=== PATIENT | male | born 1950 | race Caucasian/White ===

== ENCOUNTER 2017-11-13 08:22 | Day surgery (SDC) | payer OTHER ==
[~2017-11-13] VITALS: Ht 180.3 cm; Wt 83.9 kg
[2017-11-13] MEDS ORDERED: NS 1000 ML BAG IV ONE (10:16)
[2017-11-13] MEDS ORDERED: WATER FOR IRRIGATION,STERILE 1,000 ML IRRIG.SOLN IR ONE (10:16)
[2017-11-13] MEDS ORDERED: OXYMETAZOLINE HCL 0.05% NASAL SPRAY NS ONE (10:16)
[2017-11-13] MEDS ORDERED: SUCCINYLCHOLINE CHLORIDE 20 MG/ML(QUELICIN) IVP ONE (10:16)
[2017-11-13] MEDS ORDERED: SEVOFLURANE 15 MIN GAS INH ONE (10:16)
[2017-11-13] MEDS ORDERED: MIDAZOLAM HCL 5 MG/5 ML VIAL IVP ONE (10:16)
[2017-11-13] MEDS ORDERED: LIGHT MINERAL OIL 10 ML VIAL MC ONE (10:16)
[2017-11-13] MEDS ORDERED: ONDANSETRON HCL 4 MG/2 ML VIAL IVP ONE ×2 (10:16→12:00)
[2017-11-13] MEDS ORDERED: LIDOCAINE/EPI 1% 1:100000 20 ML VIAL INJ ONE (10:16)
[2017-11-13] MEDS ORDERED: LR 1,000 ML IV.SOLN IV ONE (10:16)
[2017-11-13] MEDS ORDERED: GLYCOPYRROLATE 0.2 MG/ML VIAL IJ ONE (10:16)
[2017-11-13] MEDS ORDERED: PROPOFOL 200MG/ 20ML VIAL (DIPRIVAN) IV ONE (10:16)
[2017-11-13] MEDS ORDERED: LIDOCAINE JECT 2% PF 100 MG/5ML SYRINGE IVP ONE (10:16)
[2017-11-13] MEDS ORDERED: NS IRRIG SOLN 1000 ML IR ONE (10:16)
[2017-11-13] MEDS ORDERED: HYDROCORTISONE SOD SUCC 100 MG/2 ML VIAL IVP ONE (10:16)
[2017-11-13] MEDS ORDERED: fentaNYL CITRATE 250 MCG/5 ML AMP IV ONE (10:16)
[2017-11-13] MEDS ORDERED: MUPIROCIN 2% TOPICAL OINTMENT 22 GM TP ONE (10:16)
[2017-11-13] MEDS ORDERED: NEOSTIGMINE METHYLSULFATE 1 MG/ML, 10 ML VIAL IVP ONE (10:16)
[2017-11-13] MEDS ORDERED: ROCURONIUM BROMIDE 10 MG/ML (ZEMURON) IV ONE (10:16)
[2017-11-13] MEDS ORDERED: MIDAZOLAM HCL 5 MG/5 ML VIAL IVP PRN (12:00)
[2017-11-13] MEDS ORDERED: MEPERIDINE HCL/PF 25 MG/ML DISP.SYRIN IVP PRN (12:00)
[2017-11-13] MEDS ORDERED: HYDROmorphone 1 MG INJ. 1 MG/ML AMPUL IVP PRN (12:00)
[2017-11-13] MEDS ORDERED: NALOXONE HCL 0.4 MG/ML AMP (NARCAN) IVP ONE (12:00)
[2017-11-13] MEDS ORDERED: fentaNYL CITRATE/PF 100 MCG/2 ML AMP IVP PRN (12:00)
[2017-11-13] MEDS ORDERED: ALBUTEROL SULFATE 0.083% 2.5 MG/3 ML VIAL.NEB INH PRN (12:15)
[2017-11-13 12:45] VITALS: BP_SYST 126
[2017-11-13] MEDS ORDERED: OXYCODONE/ACETAMINOPHEN 5-325 TABLET ONE (14:08)
== END 2017-11-13 16:05 | disposition home or self-care (01) ==
LOC: SDS 08:22 → SMU 08:22 → SDS 16:05
PROVIDERS: ATTEND Otolaryngology
DX: J34.2 Deviated nasal septum (principal); J32.9 Chronic sinusitis, unspecified; J34.89 Other specified disorders of nose and nasal sinuses; J32.4 Chronic pansinusitis; J34.3 Hypertrophy of nasal turbinates; J30.1 Allergic rhinitis due to pollen; K21.9 Gastro-esophageal reflux disease without esophagitis; J45.20 Mild intermittent asthma, uncomplicated
CPT/HCPCS: 30140; 30520; 31255; 31267; 31297; 88305; 88311; C1726; J0330; J1720; J2250; J2405; J2704; J2710; J3010; J3490; J7030; J7120

== ENCOUNTER 2017-12-22 07:23 | Inpatient (IN) | payer OTHER ==
[~2017-12-22] VITALS: Ht 180.3 cm; Wt 83.5 kg
[2017-12-22 07:25] VITALS: BP_SYST 119
[2017-12-22] MEDS ORDERED: IPRATROPIUM BROM 0.5 MG/2.5 ML VIAL.NEB (ATROVENT) IH ONE (07:30)
[2017-12-22] MEDS ORDERED: LevALBUTEROL HCL 1.25 MG/0.5 ML *CONC.* VIAL.NEB (XOPENEX CONC.) INH ONE ×2 (07:30→13:18)
[2017-12-22] MEDS ORDERED: methylPREDNISolone SOD SUCC/PF 62.5 MG/ML VIAL IVP ONE (07:30)
--- NOTE | 2017-12-22 07:45 | NUR ---
PATIENT PLACED IN BED 3, PATIENT HAVING SHORTNESS OF BREATH, TACHYPNEA. PATIENT STATES THAT HE HAS HAD DOUBLE PNEUMONIA IN THE PAST 3 WEEKS, PATIENT STATES HE HAS FINISHED HIS STEROIDS THIS PAST WEEKEND AND HE FEELS LIKE THE DISTRESS HAS INCREASED. PRIOR TO COMING IN HE TOOK THE NEBULIZER AND INHALERS WITHOUT RELIEF. PATIENT HAS BEEN FOLLOWING UP WITH PULMONARY AND WITH CARDIOLOGY. DESIGNER IS DR. CRAWFORD.
[2017-12-22 07:48] LABS: BASOPHILS # (AUTO) 0.1 K/uL (0.0-0.2)
[2017-12-22 07:54] LABS: BASOPHILS % (AUTO) 0.7 % (0.0-2.0); EOSINOPHILS # (AUTO) 2.3 K/uL (0.0-0.4); EOSINOPHILS % (AUTO) 22.4 % (0.0-4.0); HEMATOCRIT 42.6 % (36-54); HEMOGLOBIN 15.1 g/dL (14.0-18.0); LYMPHOCYTES # (AUTO) 0.6 K/uL (1.0-5.5); LYMPHOCYTES % (AUTO) 6.4 % (20.5-51.5); MEAN CORPUSCULAR HEMOGLOBIN 33 pg (27-31); MEAN CORPUSCULAR HGB CONC 36 % (32-36); MEAN CORPUSCULAR VOLUME 93 fL (79.0-98.0); MONOCYTES # (AUTO) 0.8 K/uL (0.0-1.0); MONOCYTES % (AUTO) 8.1 % (1.7-9.3); NEUTROPHILS # (AUTO) 6.3 K/uL (1.8-7.7); NEUTROPHILS % (AUTO) 62.4 % (40.0-70.0); PLATELET COUNT (AUTO) 272 K/uL (130-430); RED BLOOD CELL COUNT(AUTO) 4.59 MIL/uL (4.2-6.2); WHITE BLOOD COUNT (AUTO) 10.1 K/uL (4.8-10.8)
--- NOTE | 2017-12-22 07:58 | NUR ---
MD AT BEDSIDE FOR EVALUATION
[2017-12-22 08:08] LABS: CALCIUM 9.3 mg/dL (8.4-11.0); CREATININE 1.28 mg/dL (0.55-1.30)
[2017-12-22 08:16] LABS: INR 1.1 (0.80-1.20); PROTHROMBIN TIME 10.7 SECS (9.5-12.5)
[2017-12-22 08:19] LABS: ALBUMIN 2.9 g/dL (3.4-4.8); TOTAL BILIRUBIN 1.6 mg/dL (0.0-1.0)
[2017-12-22] MEDS ORDERED: LEVOFLOXACIN 500 MG/D5W 100 ML IV ONE (08:45)
[2017-12-22] MEDS ORDERED: ALBMDI INH (09:24)
[2017-12-22] MEDS ORDERED: BUDE6HFA INH (09:24)
[2017-12-22] MEDS ORDERED: TAMS-11 PO (09:25)
--- NOTE | 2017-12-22 09:25 | NUR ---
PATIENT TO BE ADMITTED UNDER THE SERVICE OF DR. SPENCER.
--- NOTE | 2017-12-22 09:25 | NUR ---
Medication reconciliation completed with information provided by pt. Any prior medication reconciliation on file was reviewed and corrected.
--- NOTE | 2017-12-22 09:28 | NUR ---
ORDERS RECEIVED FROM DR. SPENCER REGARDING ADMISSION TO TELEMETRY. ADMISSION DX: EXACERBATED ASTHMA, COMPLICATED PNEUMONIA, HYPOXIA. ORDERS RECEIVED FOR REGULAR DIET, PULMONARY CONSULT FOR DR. FAULKNER, SPUTUM GRAM STAIN AND CULTURE, AND URINALYSIS. ORDERS ENTERED BY NURSE. CALLED FOR BED ASSIGNMENT. ROOM 111B.
[2017-12-22] MEDS ORDERED: ALBUTEROL SULFATE 0.083% 2.5 MG/3 ML VIAL.NEB INH ONE (09:30)
--- NOTE | 2017-12-22 10:08 | NUR ---
ADMISSION NOTE Received patient from ER via gurney. Patient admitted with diagnosis of asthama exacerbation and complicated PNA. Patient is awake, alert, oriented X . Patient oriented to hospital room, call light, toileting, pain management and safety-teach back done. Patient informed that Mary will be his nurse and that their room number is 112-B. Personal belongings checked and Belongings List documented. Call light within reach.
--- NOTE | 2017-12-22 10:17 | NUR ---
CONSULT PULMONOLOGY EXACERBATED ASTHMA, COMPLICATED PNA, HYPOXIA DR FAULKNER [phone] DR STONE NEWSPAPER PHOTOGRAPHER S/W KRYSTIAN IN OFFICE / DR STONE IS ROUNDING AND IS AWARE OF CONSULT
[2017-12-22 10:20] VITALS: BP_SYST 125
--- NOTE | 2017-12-22 10:45 | NUR ---
NOTE: GOT REPORT FROM AN CHACORTA. PATIENT ALERT AND ORIENTED. PATIENT NOT COMPLAINING OF PAIN AT MOMENT. PATIENT ON 2L NC NOT COMPLAINING OF SHORTNESS OF BREATH. PATIENT NOT COMPLAINING OF NAUSEA OR VOMITING OR CONSTIPATION. EDUCATED PATIENT ON IMPORTANCE OF BED ALARM BUT REFUSED TO HAVE IT ON. ASSESSMENT WAS DONE. BED IN LOWEST POSITION WITH CALL LIGHT IN REACH. WILL CONTINUE TO MONITOR.
[2017-12-22] MEDS ORDERED: LevALBUTEROL HCL 1.25 MG/0.5 ML *CONC.* VIAL.NEB (XOPENEX CONC.) INH PRN (11:00)
[2017-12-22] MEDS: LEVOFLOXACIN 500 MG/D5W 100 ML IV SCH (12:17)
--- NOTE | 2017-12-22 12:20 | NUR ---
NOTE: PATIENT IN BED WITH AT BEDSIDE. PATIENT EATING LUNCH. GAVE PATIENT ANTIBIOTICS. PATIENT HAS NO DISTRESS AT MOMENT. WILL CONTINUE TO MONITOR.
[2017-12-22 12:45] VITALS: BP_SYST 125
[2017-12-22] MEDS: LevALBUTEROL HCL 1.25 MG/0.5 ML *CONC.* VIAL.NEB (XOPENEX CONC.) INH SCH ×2 (13:18→19:58)
[2017-12-22 13:20] VITALS: BP_SYST 125
[2017-12-22] MEDS ORDERED: IOHEXOL 350 mgI/mL, 150 ML INFUS..BTL IV ONE (13:33)
--- NOTE | 2017-12-22 13:45 | NUR ---
NOTE: PATIENT LEFT TO CT.
--- NOTE | 2017-12-22 14:15 | NUR ---
NOTE: PATIENT BACK FROM CT. IN RESTROOM NOW. WILL CONTINUE TO MONITOR.
--- NOTE | 2017-12-22 14:45 | NUR ---
NOTE: PATIENT WAS HOOKED UP TO LAST OF ANTIBIOTICS BY NURSE PRESTON. IV GOT INFILTRATED. STOPPED FLUIDS. GAVE PATIENT MEDICATION IN OTHER IV. WILL CONTINUE TO MONITOR PATIENT.
[2017-12-22] MEDS: methylPREDNISolone SOD SUCC/PF 62.5 MG/ML VIAL IVP SCH ×2 (14:56→21:06)
[2017-12-22] MEDS ORDERED: ZOLPIDEM TARTRATE 5 MG TABLET PO PRN (15:15)
[2017-12-22] MEDS ORDERED: CYCL-10 PO (15:15)
[2017-12-22] MEDS ORDERED: ACETAMINOPHEN 325 MG TABLET PO PRN (15:15)
[2017-12-22] MEDS ORDERED: FAMOTIDINE 20 MG TABLET PO ONE (15:15)
[2017-12-22 16:50] VITALS: BP_SYST 107
--- NOTE | 2017-12-22 16:52 | NUR ---
NOTE: PATIENT WAS COMPLAINING OF SHORTNESS OF BREATH AND THAT HE COULDN'T TAKE A DEEP BREATH. CALLED RT TO GIVE HIM BREATHING TREATMENT. IV WAS TAKEN OUT OF INFILTRATED SITE. SWELLING WENT DOWN. WILL CONTINUE TO MONITOR.
[2017-12-22] MEDS: MONTELUKAST 10 MG TABLET PO SCH (17:46)
--- NOTE | 2017-12-22 18:21 | NUR ---
CLOSING NOTE: PATIENT SITTING IN BED WATCHING TV WITH FAMILY AT BEDSIDE. PATIENT SAID HE STILL FEELS A LITTLE SHORT OF BREATH. PATIENT GOT A BREATHING TREATMENT ABOUT AN HOUR AGO. PATIENT ON 2L NC. PATIENT WAS GIVEN SCHEDULED MEDICATIONS. PATIENT NOT COMPLAINING OF PAIN OR NAUSEA/VOMITING. EDUCATED PATIENT ON IMPORTANCE OF BED ALARM BUT REFUSED TO HAVE IT ON THROUGH SHIFT. PATIENT SALINE LOCKED. BED IN LOWEST POSITION WITH CALL LIGHT IN REACH. WILL CONTINUE TO MONITOR AND GIVE REPORT TO CONTINUOUS LINTER DRIER OPERATOR NURSE.
--- NOTE | 2017-12-22 19:10 | NUR ---
OPENING NOTE Rec'd report from LULI Hernandez. Pt resting in bed awake, alert, oriented x4. Family at the bedside. Breathing unlabored and even, on 2L oxygen via NC. No signs of distress, no needs at this time. Fall and safety precautions in place. Bed in lowest position, brake on, call light within reach. Bed alarm refused. IV site saline locked. Will continue to monitor.
[2017-12-22 20:41] VITALS: BP_SYST 121
[2017-12-22] MEDS: CYCLOBENZAPRINE HCL 10 MG TABLET (FLEXERIL) PO SCH (21:06)
--- NOTE | 2017-12-22 23:32 | NUR ---
Pt resting in bed awake, alert, oriented x4. Breathing unlabored and even on 2L oxygen via NC. No signs of distress, no needs at this time. Fall and safety precautions in place. Bed in lowest position, brake on, call light within reach. Will continue to monitor.
--- NOTE | 2017-12-23 00:08 | NUR ---
Pt's daughter called for an update. Also transferred her to pt's room to talk to pt
[2017-12-23 00:25] VITALS: BP_SYST 129
[2017-12-23] MEDS: LevALBUTEROL HCL 1.25 MG/0.5 ML *CONC.* VIAL.NEB (XOPENEX CONC.) INH SCH ×4 (01:30→19:17)
--- NOTE | 2017-12-23 02:51 | NUR ---
Pt resting in bed with eyes closed. Breathing unlabored and even on 2L oxygen via NC. No signs of distress, no needs at this time. Fall and safety precautions in place. Bed in lowest position, brake on, call light within reach. Will continue to monitor.
[2017-12-23] MEDS: methylPREDNISolone SOD SUCC/PF 62.5 MG/ML VIAL IVP SCH ×3 (06:02→21:18)
[2017-12-23 07:30] LABS: BASOPHILS % (AUTO) 0.2 % (0.0-2.0); HEMATOCRIT 41.2 % (36-54); HEMOGLOBIN 14.2 g/dL (14.0-18.0); LYMPHOCYTES # (AUTO) 0.8 K/uL (1.0-5.5); MEAN CORPUSCULAR HEMOGLOBIN 33 pg (27-31); MEAN CORPUSCULAR HGB CONC 35 % (32-36); MEAN CORPUSCULAR VOLUME 95 fL (79.0-98.0); MONOCYTES # (AUTO) 0.5 K/uL (0.0-1.0); MONOCYTES % (AUTO) 3.9 % (1.7-9.3); NEUTROPHILS # (AUTO) 10.6 K/uL (1.8-7.7); NEUTROPHILS % (AUTO) 88.9 % (40.0-70.0); PLATELET COUNT (AUTO) 282 K/uL (130-430); RED BLOOD CELL COUNT(AUTO) 4.33 MIL/uL (4.2-6.2); RED CELL DISTRIBUTION WIDTH 13.1 % (9.0-15.0); WHITE BLOOD COUNT (AUTO) 11.9 K/uL (4.8-10.8)
[2017-12-23 07:31] LABS: CREATININE 1.21 mg/dL (0.55-1.30)
--- NOTE | 2017-12-23 07:40 | NUR ---
CLOSING NOTE Gave report to LULI Harris. Pt resting in bed awake, alert, oriented x4, receiving a breathing treatment. Breathing unlabored and even on 2L oxygen via NC. No signs of distress, no needs at this time. All needs met throughout shift. Fall and safety precautions in place throughout shift. Bed in lowest position, brake on, call light within reach. IV site saline locked. No signs of infiltration. Endorsed care to day shift nurse.
[2017-12-23 08:01] VITALS: BP_SYST 120
--- NOTE | 2017-12-23 08:02 | NUR ---
Opening Note received report from production shift supervisor RN, pt resting in bed, A&Ox4, respirations even and unlabored, tolerating O2 therapy well on 2L nasal canula, pt denies any chest pain or shortness of breath, pt denies any pain, IV site clean, dry, and intact, tele monitor in place, pt educated on use of call light and asked to call for assistance, pt verbalized understanding, call light in reach, bed in low position, bed alarm on, room close to nurses station, fall and aspiration precautions in place.
[2017-12-23] MEDS: FAMOTIDINE 20 MG TABLET PO SCH (08:40)
--- NOTE | 2017-12-23 08:42 | NUR ---
Medication/Notes pt educated on medication use and side effects, pt verbalized understanding, tolerated medication administration well, pt ambulated to bathroom, steady gait noted, pt refusing bed alarm at this time, bed in low position, rooom close to nurses station, fall and aspiration precautions in place.
[2017-12-23] MEDS: LEVOFLOXACIN 500 MG/D5W 100 ML IV SCH (10:20)
--- NOTE | 2017-12-23 10:34 | NUR ---
Medication pt and spouse educated on medication use and side effects, pt and spouse verbalized understanding, pt tolerating medication administration well, no redness or swelling at IV site, spouse at bedside, fall and aspiration precautions in place.
--- NOTE | 2017-12-23 11:10 | NUR ---
RN Rounds pt resting in bed, spouse at bedside, no complaints of pain or shortness of breath, no acute distress noted, IV infusing freely, fall and aspiration precautions in place.
[2017-12-23 12:35] VITALS: BP_SYST 117
--- NOTE | 2017-12-23 13:47 | NUR ---
Medication pt educated on medication use and side effects, pt tolerated medication administration well, no additional needs at this time, fall and aspiration precautions in place.
--- NOTE | 2017-12-23 14:30 | NUR ---
Notes pt ambulating in hallway, steady gait noted, pt tolerating well.
--- NOTE | 2017-12-23 15:32 | NUR ---
RN Rounds pt resting in bed, family at bedside, pt denies any pain or shortness of breath, no additional needs at this time, fall and aspiration precautions in place.
[2017-12-23 16:35] VITALS: BP_SYST 120
[2017-12-23] MEDS: MONTELUKAST 10 MG TABLET PO SCH (17:12)
--- NOTE | 2017-12-23 17:13 | NUR ---
Medications pt educated on medication use and side effects, pt verbalized understanding, tolerated medication administration well, no additional needs at this time, fall and aspiration precautions in place.
--- NOTE | 2017-12-23 18:42 | NUR ---
Closing note pt resting in bed, A&Ox4, tolerating O2 therapy on 2L nasal canula well, respirations even and unlabored, denies any chest pain or shortness of breath, no pain at this time, IV site clean, dry, and intact, family at bedside, no acute distress noted, pt educated on use of call light and asked to call for assistance, pt verbalized understanding, call light in reach, bed in low position, pt educated on use of bed alarm, pt refusing bed alarm at this time, room close to nurses station, fall and aspiration precautions in place, will endorse care to personal lines account executive RN.
--- NOTE | 2017-12-23 19:07 | NUR ---
Called RT pt requesting PRN breathing treatment at this time, called respiratory therapist, endorsed to records custodian RN.
--- NOTE | 2017-12-23 19:10 | NUR ---
OPENING NOTE Rec'd report from LULI Harris. Family at the bedside. Pt resting in bed awake, alert, oriented x4. Breathing unlabored and even on 2L oxygen via NC. Tolerating well. No signs of distress, no needs at this time. Fall and safety precautions in place. Bed in lowest position, brake on, call light within reach. IV access saline locked. Will continue to monitor.
[2017-12-23] MEDS: BUDESONIDE 0.5 MG/2 ML AMPUL.NEB INH SCH (19:33)
[2017-12-23 20:22] VITALS: BP_SYST 126
[2017-12-23] MEDS: CYCLOBENZAPRINE HCL 10 MG TABLET (FLEXERIL) PO SCH (20:30)
[2017-12-23] MEDS: guaiFENesin ER 600 MG TAB PO SCH (20:30)
--- NOTE | 2017-12-23 20:35 | NUR ---
Pt ambulating in hallway with . Addendum: 12/23/17 at 2043 by Gosia Boswell RN Checked pt's oxygen level mid-ambulation at pt's request. Pt oxygen at 95 on room air. No signs of distress. Denies SOB, chest pain, dizziness.
[2017-12-24] VITALS: BP_SYST 138
[2017-12-24] MEDS: LevALBUTEROL HCL 1.25 MG/0.5 ML *CONC.* VIAL.NEB (XOPENEX CONC.) INH SCH ×4 (01:30→19:33)
[2017-12-24] MEDS: methylPREDNISolone SOD SUCC/PF 62.5 MG/ML VIAL IVP SCH ×3 (05:13→21:16)
[2017-12-24] MEDS: BUDESONIDE 0.5 MG/2 ML AMPUL.NEB INH SCH ×2 (07:21→19:33)
--- NOTE | 2017-12-24 07:43 | NUR ---
CLOSING NOTE Gave report to Marina day shift nurse. Pt resting in bed awake, alert, oriented x4.Breathing unlabored and even on 2L oxygen via NC. No signs of distress, no needs at this time. All needs met throughout shift. Fall and safety precautions in place throughout shift. Bed in lowest position, brake on, call light within reach.
[2017-12-24 08:06] LABS: CALCIUM 9.2 mg/dL (8.4-11.0); CREATININE 1.25 mg/dL (0.55-1.30); POTASSIUM 4.3 mmol/L (3.5-5.1)
[2017-12-24 08:10] VITALS: BP_SYST 140
--- NOTE | 2017-12-24 08:10 | NUR ---
OPENING NOTE LATE ENTRY DUE TO PT CARE: REPORT IS RECEIVED FROM VENEER JOINTER RETURNER NURSE AND CARE IS ENDORSED TO MYSELF. PT IS RECEIVED AWAKE AND ALERT AND ORIENTED X4. NO SIGNS OR SYMPTOMS OF DISTRESS OR SOB NOTED. PT DENIES ANY PAIN. MORNING VS ARE STABLE. PT HAS RIGHT AC 20G SALINE LOCKED. WHITE BOARD IS UPDATED AND PLAN OF CARE IS DISCUSSED. CURRENT NEEDS ARE MET. BED IS AT LOWEST POSITION, CALL LIGHT WITHIN REACH, TWO SIDE RAILS UP. WILL CONTINUE TO MONITOR.
[2017-12-24] MEDS: guaiFENesin ER 600 MG TAB PO SCH ×2 (08:22→20:50)
--- NOTE | 2017-12-24 10:34 | NUR ---
ROUNDS PT IS AWAKE AND ALERT. NO SIGNS OR SYMPTOMS OF DISTRESS OR SOB NOTED. PT DENIES ANY PAIN. PT IS WALKING AROUND UNIT WITH AND NO IS DENYING ANY SOB OR DISCOMFORT. O2 REASSESSED AND IT IS CURRENTLY AT 94% RA. CURRENT NEEDS ARE MET. PT RETURNED TO BED AND IT IS AT LOWEST POSITION, CALL LIGHT WITHIN REACH, TWO SIDE RAILS UP. WILL CONTINUE TO MONITOR.
[2017-12-24 12:00] VITALS: BP_SYST 132
--- NOTE | 2017-12-24 12:10 | NUR ---
ROUNDS LATE ENTRY DUE TO PT CARE: PT IS AWAKE AND ALERT. FAMILY IS AT BESIDE. NO SIGNS OR SYMPTOMS OF DISTRESS OR SOB NOTED. PT DENIES ANY PAIN. LUNCH IS BROUGHT TO BEDSIDE AND PT IS EATING. CURRENT NEEDS ARE MET BED IS AT LOWEST POSITION, CALL LIGHT WITHIN REACH, TWO SIDE RAILS UP. WILL CONTINUE TO MONITOR.
[2017-12-24] MEDS: LEVOFLOXACIN 500 MG/D5W 100 ML IV SCH (12:47)
--- NOTE | 2017-12-24 14:10 | NUR ---
ROUNDS LATE ENTRY DUE TO PT CARE: PT IS AWAKE AND ALERT. FAMILY IS AT BESIDE. NO SIGNS OR SYMPTOMS OF DISTRESS OR SOB NOTED. PT DENIES ANY PAIN. CURRENT NEEDS ARE MET BED IS AT LOWEST POSITION, CALL LIGHT WITHIN REACH, TWO SIDE RAILS UP. WILL CONTINUE TO MONITOR.
[2017-12-24] MEDS ORDERED: COMMUNICATION ORDER XX ONE (14:30)
[2017-12-24 16:10] VITALS: BP_SYST 136
--- NOTE | 2017-12-24 16:10 | NUR ---
ROUNDS LATE ENTRY DUE TO PT CARE: PT IS AWAKE AND ALERT. NO SIGNS OR SYMPTOMS OF DISTRESS OR SOB NOTED. PT DENIES ANY PAIN. FAMILY IS AT BEDSIDE AND PT HAS BEEN AMBULATING THROUGHOUT THE UNIT AND DENIES ANY DIZZINESS OR SOB. O2 SATURATIONS ARE AT 97% ROOM AIR. CURRENT NEEDS ARE MET. BED IS AT LOWEST POSITION, CALL LIGHT WITHIN REACH, TWO SIDE RAILS UP. BED ALARM IS ON. WILL CONTINUE TO MONITOR.
--- NOTE | 2017-12-24 16:21 | NUR ---
Dietitian Recommendations * Recommend continuing regular diet per LP, RD Please refer to Nutrition Assessment for details.
[2017-12-24] MEDS: FAMOTIDINE 20 MG TABLET PO SCH (16:36)
[2017-12-24] MEDS: MONTELUKAST 10 MG TABLET PO SCH (17:59)
--- NOTE | 2017-12-24 18:32 | NUR ---
Paged Dr. De Luna, communications manager for Dr. Roberts, dialed [phone], s/w Reina.
--- NOTE | 2017-12-24 18:43 | NUR ---
CLOSING NOTE PT IS AWAKE AND ALERT. NO SIGNS OR SYMPTOMS OF DISTRESS OR SOB NOTED. PT DENIES ANY PAIN. FAMILY IS AT BEDSIDE. DR. CRAWFORD CALLED BACK AND IS MADE AWARE THAT PT IS REQUESTING CHEST XRAY PRIOR TO BEING DISCHARGED. "OKAYED" ORDER AND WAS INPUT. CURRENT NEEDS ARE MET. BED IS AT LOWEST POSITION, CALL LIGHT WITHIN REACH, THREE SIDE RAILS UP, BED ALARM IS ON. WILL CONTINUE TO MONITOR UNTIL CARE AND REPORT IS GIVEN TO SAND CONTROL WORKER NURSE.
--- NOTE | 2017-12-24 19:15 | NUR ---
OPENING NOTE Rec'd report from Marina, day shift nurse. Pt resting in bed awake, alert, oriented x4. Breathing unlabored and even. No signs of distress, no needs at this time. Family at the bedside. IV access saline locked. Bed in lowest position, brake on, call light within reach. Will continue to monitor.
[2017-12-24 20:19] VITALS: BP_SYST 110
[2017-12-24] MEDS: CYCLOBENZAPRINE HCL 10 MG TABLET (FLEXERIL) PO SCH (20:50)
--- NOTE | 2017-12-24 23:29 | NUR ---
Pt resting in bed awake, alert, oriented x4. Breathing unlabored and even. No signs of distress, no needs at this time. Bed in lowest position, brake on, call light within reach. Will continue to monitor.
[2017-12-25 00:37] VITALS: BP_SYST 123
[2017-12-25] MEDS: LevALBUTEROL HCL 1.25 MG/0.5 ML *CONC.* VIAL.NEB (XOPENEX CONC.) INH SCH ×3 (01:32→15:38)
--- NOTE | 2017-12-25 01:55 | NUR ---
Pt resting in bed with eyes closed. Breathing unlabored and even. No signs of distress, no needs at this time. Bed in lowest position, brake on, call light within reach. Will continue to monitor.
[2017-12-25] MEDS: BUDESONIDE 0.5 MG/2 ML AMPUL.NEB INH SCH (07:11)
--- NOTE | 2017-12-25 07:25 | NUR ---
CLOSING NOTE Gave report to LULI Fowler. Pt resting in bed awake, alert, oriented x4. Currently receiving a breathing treatment. No signs of distress. All needs met throughout shift. Fall and safety precautions in place. Bed in lowest position, brake on, call light within reach.
[2017-12-25 08:00] VITALS: BP_SYST 136
--- NOTE | 2017-12-25 08:00 | NUR ---
Opening Note Report received from [facility] shift nurse. Patient is currently sitting up in bed. Current O2 sat is 95% on RA. Iv is on the LFA 20g saline locked. No signs of distress noted at the moment. Call light is within reach and bed is in low position. Will continue to monitor.
[2017-12-25] MEDS: FAMOTIDINE 20 MG TABLET PO SCH (08:31)
[2017-12-25] MEDS: guaiFENesin ER 600 MG TAB PO SCH (08:31)
[2017-12-25] MEDS ORDERED: methylPREDNISolone SOD SUCC 40 MG/ML VIAL IVP SCH (09:00)
--- NOTE | 2017-12-25 10:20 | NUR ---
Rounds Patient is currently resting in bed. No signs of distress noted.
[2017-12-25 10:52] VITALS: BP_SYST 148
[2017-12-25] MEDS: LEVOFLOXACIN 500 MG/D5W 100 ML IV SCH (11:30)
--- NOTE | 2017-12-25 12:15 | NUR ---
Rounds Patient ambulated to the restroom and back into bed. No signs of distress noted.
[2017-12-25 12:17] VITALS: BP_SYST 132
--- NOTE | 2017-12-25 13:02 | NUR ---
ATTENDING MD DR SPENCER WAS CALLED RE: PATIENT WANTS TO GO HOME. SPOKE TO JUSTICE.
--- NOTE | 2017-12-25 14:05 | NUR ---
Rounds Dr. Roberts rounded on the patient. stated that the patient is ok to go home. However, he must follow up for a chest x-ray on Thursday. Written order for x-ray was given to the patient.
--- NOTE | 2017-12-25 14:27 | NUR ---
REPAGED ATTENDING MD DR SPENCER, RE: PATIENT STILL WANTING TO GO HOME AFTER CLEARED BY DR STONE. SPOKE TO [id number]
[2017-12-25 15:15] VITALS: BP_SYST 132
--- NOTE | 2017-12-25 16:20 | NUR ---
Rounds Patient is currently resting in bed. Spoke with Dr. Resendez who stated that she will come and discharge the patient.
[2017-12-25] MEDS ORDERED: LEVO500T20 PO (16:35)
[2017-12-25] MEDS ORDERED: PRED20TA PO (16:38)
[2017-12-25 16:53] VITALS: BP_SYST 136
--- NOTE | 2017-12-25 17:38 | NUR ---
Transition of Care Note All prescriptions and transition of care instructions were provided to the patient. He verbalized understanding of all. Chest x-ray order was also given ID and IV were removed. Patient left the unit in stable condition.
--- NOTE | 2017-12-28 14:13 | NUR ---
Discharge Follow Up Phone Call: NEWS SPECIALIST called and spoke with pt ([phone]). Pt states that he is doing well; pt's prescriptions have been filled; there are no questions regarding discharge or medication instructions; pt followed up with Dr. De Luna today. Pt did not express any other needs or concerns and denied the need for additional follow up at this time. No further follow up phone calls required at this time.
== END 2017-12-25 17:25 | disposition home or self-care (01) | DRG 189 ==
LOC: SED 07:23 → STU 09:31
PROVIDERS: ADMIT Internal Medicine; ATTEND Internal Medicine
DX: J96.01 Acute respiratory failure with hypoxia (principal); J45.901 Unspecified asthma with (acute) exacerbation; E87.1 Hypo-osmolality and hyponatremia; E44.1 Mild protein-calorie malnutrition; J90 Pleural effusion, not elsewhere classified; D72.1 Eosinophilia; K21.9 Gastro-esophageal reflux disease without esophagitis; N40.0 Benign prostatic hyperplasia without lower urinary tract symptoms; R73.9 Hyperglycemia, unspecified; Z79.899 Other long term (current) drug therapy; Z87.01 Personal history of pneumonia (recurrent); Z68.25 Body mass index [BMI] 25.0-25.9, adult
CPT/HCPCS: 36415; 36600; 71045; 71275; 80048; 80053; 82803-TC; 83605; 83735-TC; 83880; 84484; 85025; 85610-TC; 85730-TC; 87040-TC; 87070-TC; 87205-TC; 93005; 94640; 94760; J1030; J1956; J2930; J7612; J7613; J7626; Q9967